=== PATIENT | male | born 1960 | race Caucasian/White ===

== ENCOUNTER 2018-01-14 12:33 | Emergency (ER) | payer OTHER ==
[~2018-01-14] VITALS: Ht 170.1 cm; Wt 95.3 kg
[~2018-01-14 12:33] MED LIST: ASPIRIN81 MG; DIOVAN HCT 12.51 TA6 PO; KEFLEX500 MG PO; MOTRIN800 MG PO; NKHM
[2018-01-14 12:34] VITALS: BP 167/90
[2018-01-14] MEDS ORDERED: NAPROSYN500 MG PO (12:55)
== END 2018-01-14 14:32 | disposition home or self-care (01) ==
LOC: ED 12:33
DX: S93.402A Sprain of unspecified ligament of left ankle, initial encounter (principal); R03.0 Elevated blood-pressure reading, without diagnosis of hypertension; Z79.899 Other long term (current) drug therapy; X50.1XXA Overexertion from prolonged static or awkward postures, initial encounter; Y93.89 Activity, other specified; Y92.89 Other specified places as the place of occurrence of the external cause; Y99.8 Other external cause status

== ENCOUNTER → 2020-11-01 | Outpatient (CLI) | payer OTHER ==
[~2020-11-01] MED LIST changes: +NAPROSYN500 MG PO
== END | disposition home or self-care (01) ==
LOC: US 14:42
PROVIDERS: ATTEND Internal Medicine
DX: K76.0 Fatty (change of) liver, not elsewhere classified (principal); K76.89 Other specified diseases of liver; R74.8 Abnormal levels of other serum enzymes

== ENCOUNTER 2021-12-19 16:14 | Emergency (ER) | payer OTHER ==
[~2021-12-19] VITALS: Ht 170.1 cm; Wt 106.6 kg
[2021-12-19 16:29] VITALS: BP 155/92
== END 2021-12-19 20:18 | disposition home or self-care (01) ==
LOC: ED 16:14
DX: M13.862 Other specified arthritis, left knee (principal); Z79.899 Other long term (current) drug therapy

== ENCOUNTER → 2021-12-29 | Outpatient (CLI) | payer OTHER | END | disposition home or self-care (01) | LOC: US 09:30 | PROVIDERS: ATTEND Orthopaedic Surgery | DX: M17.12 Unilateral primary osteoarthritis, left knee (principal); M23.92 Unspecified internal derangement of left knee; I10 Essential (primary) hypertension ==

== ENCOUNTER → 2022-05-15 | Outpatient (CLI) | payer OTHER | END | disposition home or self-care (01) | LOC: US 12:09 | PROVIDERS: ATTEND Orthopaedic Surgery | DX: M71.21 Synovial cyst of popliteal space [Baker], right knee (principal); D49.2 Neoplasm of unspecified behavior of bone, soft tissue, and skin; R22.41 Localized swelling, mass and lump, right lower limb ==